=== PATIENT | female | born 1980 | race Caucasian/White ===

== ENCOUNTER 2018-12-28 21:47 | Emergency (ER) | payer OTHER ==
[2018-12-28] MEDS: PANTOPRAZOLE 40 MG INJ IV (22:18)
[2018-12-28] MEDS: SOD CHLORIDE 0.9% 500 ML IV (22:19)
[2018-12-28 22:36] LABS: ADD MAN DIFF? NO
[2018-12-28 22:41] LABS: WHITE BLOOD COUNT 17.3 10^3/ul (4.8-10.8)
[2018-12-28 22:41] LABS: ABNORMAL IP MESSAGE 1; BASOPHILS % 0.2 % (0.0-2.0); HEMATOCRIT 48.5 % (37.0-47.0); LYMPHOCYTES # 1.8 10^3/ul (0.8-2.9); LYMPHOCYTES % 10.3 % (15.0-51.0); MEAN CORPUSCULAR HEMOGLOBIN 23.8 pg (29.0-33.0); MEAN CORPUSCULAR HGB CONC 30.9 g/dl (32.0-37.0); MEAN CORPUSCULAR VOLUME 77.1 fl (82.0-101.0); MEAN PLATELET VOLUME 10.8 fl (7.4-10.4); MONOCYTE # 1.6 10^3/ul (0.3-0.9); NEUTROPHIL # 13.8 10^3/ul (1.6-7.5); PLATELET COUNT 385 10^3/UL (140-415); RED BLOOD COUNT 6.29 10^6/ul (4.20-5.40); RED CELL DISTRIBUTION WIDTH 16.2 % (11.5-14.5)
[2018-12-28 22:49] LABS: POSITIVE DIFF @See below
[2018-12-28] MEDS: ONDANSETRON INJ 8 MG in DEXTROSE 5% 50 ML IVPB (22:50)
[2018-12-28 22:59] LABS: ALANINE AMINOTRANSFERASE 32 IU/L (13-69); ALBUMIN 4.8 g/dl (3.3-4.9); ALBUMIN/GLOBULIN RATIO 0.92; ALKALINE PHOSPHATASE 110 IU/L (42-121); ANION GAP 14 (5-13); ASPARTATE AMINO TRANSFERASE 62 IU/L (15-46); BILIRUBIN,INDIRECT 0.8 mg/dl (0-1.1); BILIRUBIN,TOTAL 0.8 mg/dl (0.2-1.3); BLOOD UREA NITROGEN 34 mg/dl (7-20); CALCIUM 10.5 mg/dl (8.4-10.2); CARBON DIOXIDE 26 mmol/L (21-31); CHLORIDE 100 mmol/L (97-110); CREATININE 0.77 mg/dl (0.44-1.00); Estimated GFR > 60 mL/min (>60); GLUCOSE 121 mg/dl (70-220); POTASSIUM 3.5 mmol/L (3.5-5.1); SODIUM 140 mmol/L (135-144)
[2018-12-28 23:01] LABS: INR 0.95; PROTIME 12.8 Sec (11.9-14.9)
[2018-12-28 23:02] LABS: PARTIAL THROMBOPLASTIN TIME 29.2 Sec (23.0-35.0)
[2018-12-28 23:10] LABS: TROPONIN-I < 0.012 ng/ml (0.000-0.120)
== END 2018-12-29 00:32 | disposition home or self-care (01) ==
LOC: E/R 12-29 00:32
DX: R11.10 Vomiting, unspecified (principal); F17.210 Nicotine dependence, cigarettes, uncomplicated; R10.9 Unspecified abdominal pain
CPT/HCPCS: 36415; 71045; 80053; 84484; 85025; 85610; 85730; 86850; 86900; 86901; 93005; 96374; 96375; 99285-25

== ENCOUNTER 2019-03-24 23:57 | Emergency (ER) | payer OTHER ==
[2019-03-25] MEDS: HYDROCODONE/APAP (5/325) TAB PO (02:29)
[2019-03-25] MEDS: LORAZEPAM 1 MG TAB PO (02:29)
== END 2019-03-25 05:17 | disposition left against medical advice (07) ==
LOC: FTE 03-25 05:17
DX: M79.661 Pain in right lower leg (principal); M79.662 Pain in left lower leg; F17.210 Nicotine dependence, cigarettes, uncomplicated
CPT/HCPCS: 73610; 73610-RT; 99283-25